=== PATIENT | male | born 1970 | race African-American/Black ===

== ENCOUNTER 2016-09-17 02:29 | Inpatient (IN) ==
[2016-09-17 03:03] LABS: Basophils % 0.5 % (0.0-0.8); Eosinophils # 0.1 10*3/uL (0.0-0.87); Eosinophils % 2.2 % (0.00-10.9); Hematocrit 33.5 VOL% (42.0-52.0); Hemoglobin 11.1 GM/DL (14.0-18.0); Immature Granulocytes % 0.3 %; Immature Granulocytes Absolute 0.02 #; Lymphocytes # 2.1 10*3/uL (1.4-4.0); Lymphocytes % 32.3 % (21.2-54.2); Mean Corpuscular HGB Conc 33.1 GM/DL (32-36); Mean Corpuscular Hemoglobin 30 PG (27-34); Mean Corpuscular Volume 90.8 FL (87-102); Mean Platelet Volume 11.1 FL (9.6-12.0); Monocytes # 0.5 10*3/uL (0.11-0.8); Neutrophils # 3.7 10*3/uL (1.4-7.4); Neutrophils % 57.7 % (38.7-73.9); Platelet Count 185 T/CUMM (130-400); Red Blood Count 3.69 MC/CUMM (3.8-5.5); Red Cell Distribution Width 13.2 % (9.3-17.3); White Blood Count 6.4 T/CUMM (4-12)
--- NOTE | 2016-09-17 03:17 | Emergency Department Note ---
Massimo Fernandez Brittany, am scribing for, and in the presence of, Yovani Lynch MD 02:56. Seyd Fernandez Robert M, MD, personally performed the services described in this documentation, ascribed by Padmini Keys in my presence, and it is both accurate and complete . Arrival - Arrival Chief Complaint: Shortness of Breath Stated Complaint: sob,dialysis pt ED Nursing Triage Note: pt to triage c/o sob. pt states he was doing his dialysis at home this am and became sob. pt was unable to finish dialysis Mode of Arrival: Wheelchair Limitations: No Limitations Source: Patient, Significant other, RN Notes Reviewed Time Seen by Provider: 09/17/16 02:41 - History of Present Illness HPI Narrative: Patient is a 46 y/o black male presenting to the ED with c/o shortness of breath with an onset of a week, worsening tonight. His in room provides most of his history. She reports that patient takes at home dialysis through his Peritoneal Catheter. She states that Dialysis has been difficult to not having any fluid drained in the past two days. She notes that she took patient to a clinic this morning in which they instilled 500 mL of fluid and were able to drain this exact amount back off, but did not further pull anymore fluid off. She was told that his Peritoneal Catheter was intact. Patient tonight has become anxious and has become more short of breath. Upon ED arrival patient appeared to be hyperventilating. He states,"my stomach is too full." reports that he does have a history of HIV and notes that his recent counts have been undetected. Patient has had some chills and cough but no fever. In room patient has an oxygen saturation of 96%. He is a patient of Dr. Mortensen, Nephrology. Patient has a past medical history of CVA, Seizures, IDDM, Dialysis , HIV, Cholecystectomy, Insertion of Peritoneal Dialysis Catheter. Onset (ago): week(s) (1) Consistency: constant Allergies/Adverse Reactions: Allergies Allergy/AdvReac Type Severity Reaction Status Date / Time No Known Allergies Allergy Verified 09/17/16 02:36 Home Medications: Home Medications Medication Instructions Recorded Confirmed Type Epivir 150 mg PO DAILY 07/19/15 07/18/16 History Lamivudine 1 tablet PO DAILY 07/19/15 07/18/16 History Sustiva 1 tablet PO DAILY 07/19/15 07/18/16 History Aspirin EC Tab 325 mg PO DAILY tablet 07/17/16 07/18/16 Rx Atorvastatin [Lipitor] 40 mg PO BEDTIME tablet 07/17/16 07/18/16 Rx Chlorhexidine 0.12% Oral Rinse 15 ml SWISH/SPIT BID bottle 07/17/16 07/18/16 Rx [Peridex] Docusate Sodium Cap [Colace Cap] 100 mg PO BID capsule 07/17/16 07/18/16 Rx Levothyroxine Tab [Synthroid Tab] 100 mcg PO DAILY@0700 #30 tablet 07/17/16 Rx Pantoprazole Tab [Protonix Tab] 40 mg PO DAILY tablet 07/17/16 07/18/16 Rx Polyethylene Glycol Powder 17 gm PO DAILY PRN #0 07/17/16 07/18/16 Rx [Miralax] Sertraline [Zoloft] 25 mg PO DAILY #30 tablet 07/17/16 07/18/16 Rx Calcitriol 0.75 mcg PO DAILY 07/18/16 07/18/16 History Sucroferric Oxyhydroxide [Velphoro 500 mg PO TID 07/18/16 07/18/16 History Chew Tab] Abacavir [Ziagen] 600 mg PO BEDTIME #30 tablet 07/23/16 Rx Losartan/Hctz 50-12.5 [Hyzaar 2 tablet PO DAILY #60 tablet 07/23/16 Rx 50-12.5] Review of System - Review of System 12 point system: reviewed and no additional remarkable complaints except as stated - Review of System Constitutional: Present: chills. Absent: fever Eyes: Absent: vision change Head/Ears/Nose/Throat: Absent: nasal drainage Respiratory: Present: cough, respiratory distress Cardiovascular: Absent: chest pain, palpitations Gastrointestinal: Absent: abdominal pain, nausea, vomiting, diarrhea, constipation Genitourinary male: Absent: urgency, dysuria, frequency Musculoskeletal: Absent: arm pain, back pain, leg pain, neck pain Skin: Absent: rash Neurological: Absent: headache Medical,Surgical,& Family Hx - Medical History Cardio: History of: CAD, Hypertension, CT (July 16, 2016) Neurology: History of: Cerebrovascular Accident (2015- WEAKNESS R SIDE) No history of: Seizures Endocrine: History of: Diabetes Mellitus (IDDM) (Since 1996) Respiratory: History of: Respiratory Problems (Patient gets SOB occasionally, get O2 PRN.) Renal: History of: Dialysis (peritoneal dialysis since 1999), Renal Problems Musculoskeletal: No history of: Amputation Hematology: History of: Anemia (chronic disease) Reproductive: Reports: Sexually Transmitted Disease (HIV+ since 2012) Other: History of: HIV (Since 2012) - Surgical History Cardiac Surgeries: Sugical HX of: Cardiac Catheterization, Cardiac Surgery ( CABG x 04 July 2016) Thoracic Surgeries: Patient denies;: Kidney (Renal Surgery), Lithotripsy, Nephrectomy, Organ Transplant, Lobectomy HEENT Surgeries: Patient denies: Eye Surgery, Thyroid Surgery, Tonsilectomy & Adenoidectomy Abdominal Surgeries: Surgical HX of: Cholecystectomy (2006) Reproductive Surgeries: Surgical HX of;: Genitourinary Surgery (INSERTION PERITONEAL DIALYSIS) Patient denies;: Cystoscopy, Prostate Surgery, Vasectomy Orthopedic Surgeries: Patient denies;: Implanted Devices, Orthopedic Surgery, Spinal Surgery, Total Hip Replacement, Total Knee Replacement - Family History Family History: Reports;: Family Diabetes (PARENTS & 6 SIBLINGS), Family Heart Disease (FATHER), Family Hypertension (MOTHER & FATHER), Family Stroke (FATHER) Denies;: Family Anesthesia Reaction, Family Psychiatric Problems - Social History Smoking Status: Current every day smoker Frequency of Alcohol Use: None Type of Drug Use: None Exam Vital Signs: Vital Signs Temperature 98.6 F 09/17/16 03:04 Pulse Rate 97 H 09/17/16 03:04 Respiratory Rate 26 H 09/17/16 03:04 Blood Pressure 160/86 09/17/16 03:04 O2 Sat by Pulse Oximetry 95 09/17/16 02:33 - General General appearance: alert, anxious - Head Head exam: Present: atraumatic, normocephalic, normal inspection - Eye Eye exam: Present: normal appearance, PERRL, EOMI - ENT ENT exam: Present: normal exam, normal oropharynx - Neck Neck exam: Present: normal inspection, full ROM, trachea midline - Chest Chest inspection: Present: normal inspection, symmetric chest wall rise - Respiratory Respiratory exam: Present: normal lung sounds bilaterally, other (96% oxygen saturation on 2L via NC). Absent: rales, rhonchi, wheezes - Cardiovascular Cardiovascular exam: Present: regular rate, normal rhythm, normal heart sounds. Absent: murmur, rubs, gallop - Abdominal Exam Abdominal exam: Present: soft, normal bowel sounds. Absent: distention, tenderness - Extremities Exam Extremities exam: Present: normal inspection - Back Exam Back exam: Present: normal inspection - Neurological Exam Neurological exam: Present: alert, oriented X3, CN II-XII intact. Absent: motor sensory deficit - Psychiatric Psychiatric exam: Present: normal affect, normal mood - Skin Skin exam: Present: warm, dry, intact, normal color Course - Consultations Consultation #1: Dr. Dr. Terrance Thompson will evaluate the patient and admit. Time: 04:18 Results - Labs CBC & BMP: 09/17/16 02:55 09/17/16 02:55 Lab Results: I have reviewed the patients labs Labs: Lab Results WBC 6.4 T/CUMM (4-12) 09/17/16 02:55 RBC 3.69 MC/CUMM (3.8-5.5) L 09/17/16 02:55 Hgb 11.1 GM/DL (14.0-18.0) L 09/17/16 02:55 Hct 33.5 VOL% (42.0-52.0) L 09/17/16 02:55 MCV 90.8 FL (87-102) 09/17/16 02:55 MCH 30 PG (27-34) 09/17/16 02:55 MCHC 33.1 GM/DL (32-36) 09/17/16 02:55 RDW 13.2 % (9.3-17.3) 09/17/16 02:55 Plt Count 185 T/CUMM (130-400) 09/17/16 02:55 MPV 11.1 FL (9.6-12.0) 09/17/16 02:55 Neut % (Auto) 57.7 % (38.7-73.9) 09/17/16 02:55 Lymph % (Auto) 32.3 % (21.2-54.2) 09/17/16 02:55 Oliver % (Auto) 7.0 % (1.7-12.7) 09/17/16 02:55 Eos % (Auto) 2.2 % (0.00-10.9) 09/17/16 02:55 Baso % (Auto) 0.5 % (0.0-0.8) 09/17/16 02:55 Neut # (Auto) 3.7 10*3/uL (1.4-7.4) 09/17/16 02:55 Lymph # (Auto) 2.1 10*3/uL (1.4-4.0) 09/17/16 02:55 Oliver # (Auto) 0.5 10*3/uL (0.11-0.8) 09/17/16 02:55 Eos # (Auto) 0.1 10*3/uL (0.0-0.87) 09/17/16 02:55 Baso # (Auto) 0.0 10*3/uL (0.0-0.2) 09/17/16 02:55 Immature Gran % 0.3 % 09/17/16 02:55 Nucleated RBC % 0.0 /100WBC 09/17/16 02:55 Immature Gran # 0.02 # 09/17/16 02:55 Nucleated RBCs # 0.00 10*3/uL 09/17/16 02:55 Sodium 142 MMOL/L (136-145) 09/17/16 02:55 Potassium 3.7 MMOL/L (3.5-5.1) 09/17/16 02:55 Chloride 104 MMOL/L (98-107) 09/17/16 02:55 Carbon Dioxide 26 MMOL/L (21-32) 09/17/16 02:55 Anion Gap 15.7 MMOL/L (5.0-15.0) H 09/17/16 02:55 BUN 41 MG/DL (7-18) H 09/17/16 02:55 Creatinine 10.40 MG/DL (0.70-1.30) H 09/17/16 02:55 GFR Calculation 7 ML/MIN 09/17/16 02:55 BUN/Creatinine Ratio 3.00 RATIO (6.00-20.00) L 09/17/16 02:55 Glucose 113 MG/DL (74-106) H 09/17/16 02:55 Calculated Osmolality 293.1 MOS/KG (273-304) 09/17/16 02:55 Calcium 8.6 MG/DL (8.5-10.1) 09/17/16 02:55 Magnesium 2.0 MG/DL (1.8-2.4) 09/17/16 02:55 Total Creatine Kinase 332 U/L (39-308) H 09/17/16 02:55 CK-MB (CK-2) 4.1 U/L (0.5-3.6) H 09/17/16 02:55 Troponin I 0.175 NG/ML (0.00-0.045) H 09/17/16 02:55 - EKG EKG results: interpreted by ERMD (Stable appearance of EKG. Normal sinus rhythm. No changes from most recent.) - Diagnostic Findings Procedure: Chest x-ray: image reviewed by me (Pulmonary edema with left pleural effusion/atelectatic changes and small amount of fluid in the minor fissure)
[2016-09-17 03:20] LABS: Calcium 8.6 MG/DL (8.5-10.1); Osmolality,Calculated 293.1 MOS/KG (273-304); Potassium 3.7 MMOL/L (3.5-5.1)
[2016-09-17 03:50] LABS: Troponin I Only 0.175 NG/ML (0.00-0.045)
[2016-09-17] MEDS ORDERED: ZALEPLON 5 MG CAPSULE PO PRN (04:34)
[2016-09-17] MEDS ORDERED: ONDANSETRON 4 MG/2 ML VIAL IV PRN (04:34)
--- NOTE | 2016-09-17 04:41 | Hospitalist History & Physical ---
Assessment and Plan - Time spent with patient Time spent with patient: Greater than 30 minutes (1) Acute pulmonary edema Status: Acute Current Visit: Yes (2) Chronic systolic (congestive) heart failure Status: Chronic Assessment and plan: Ejection fraction 30-35%. Current Visit: Yes (3) End-stage renal disease on peritoneal dialysis Status: Chronic Assessment and plan: Peritoneal dialysis catheter nonfunctional at this time. Will consult nephrology and consider surgical consult for tunneled catheter placement and hemodialysis. Current Visit: No (4) Diabetes Status: Chronic Current Visit: No Qualifiers: (5) HIV (human immunodeficiency virus infection) Problem details: treated in [place], [place] Status: Chronic Current Visit: No (6) Dyslipidemia Status: Chronic Current Visit: No (7) Hypertension Status: Chronic Current Visit: No Qualifiers: Hypertension type: essential hypertension Qualified Code(s): I10 - Essential (primary) hypertension (8) Status post coronary artery bypass graft Status: Acute Assessment and plan: Status post CABG in July 2016 Current Visit: No History of Present Illness Chief complaint: Shortness of breath History of present illness: Mr. Flores is a 46 year old male accompanied by his to the ED with c/o shortness of breath with an onset of a week, worsening tonight. His provides most of his history. She reports that patient takes at home dialysis through his Peritoneal Catheter. She states that Dialysis has been difficult and he has not had any fluid drained in the past two days. He is supposed to do 4 exchanges each day. Each exchanges 2500 mL's. He was unable to exchange fluid on Friday night. On Friday she taken to the dialysis clinic where they were able to exchange 500 mL's but were unable to take off any more fluid. She was told that his Peritoneal Catheter was intact. Patient tonight has become anxious and has become more short of breath. This evening, they tried to do another exchange at home and were unsuccessful in recovering the 2500 mL's that were instilled into his peritoneal cavity. Upon ED arrival patient appeared to be hyperventilating. He states,"my stomach is too full." reports that he does have a history of HIV and notes that his recent counts have been undetectable. He complains of abdominal pain and has had some chills and cough but no fever. Mr. Flores underwent CABG in July 2016 for three-vessel disease. At that time his echocardiogram showed an ejection fraction of 30-35%. I have been asked to admit the patient for pulmonary edema in the face of a nonfunctioning peritoneal dialysis catheter for consultation with nephrology and definitive treatment. Patient to considering hemodialysis and tunneled catheter placement. He was found to have a marginal elevation in troponin without any indication of acute myocardial infarction at this time. During the last hospitalization he was seen by Dr. Fulton. He is a patient of Dr. Mortensen, Nephrology. Patient has a past medical history of CVA, Seizures, IDDM, Dialysis , HIV, Cholecystectomy, Insertion of Peritoneal Dialysis Catheter approximately [address] John SAEED. Home Medications Medication Instructions Recorded Confirmed Type Epivir 150 mg PO DAILY 07/19/15 07/18/16 History Lamivudine 1 tablet PO DAILY 07/19/15 07/18/16 History Sustiva 1 tablet PO DAILY 07/19/15 07/18/16 History Aspirin EC Tab 325 mg PO DAILY tablet 07/17/16 07/18/16 Rx Atorvastatin [Lipitor] 40 mg PO BEDTIME tablet 07/17/16 07/18/16 Rx Chlorhexidine 0.12% Oral Rinse 15 ml SWISH/SPIT BID bottle 07/17/16 07/18/16 Rx [Peridex] Docusate Sodium Cap [Colace Cap] 100 mg PO BID capsule 07/17/16 07/18/16 Rx Levothyroxine Tab [Synthroid Tab] 100 mcg PO DAILY@0700 #30 tablet 07/17/16 Rx Pantoprazole Tab [Protonix Tab] 40 mg PO DAILY tablet 07/17/16 07/18/16 Rx Polyethylene Glycol Powder 17 gm PO DAILY PRN #0 07/17/16 07/18/16 Rx [Miralax] Sertraline [Zoloft] 25 mg PO DAILY #30 tablet 07/17/16 07/18/16 Rx Calcitriol 0.75 mcg PO DAILY 07/18/16 07/18/16 History Sucroferric Oxyhydroxide [Velphoro 500 mg PO TID 07/18/16 07/18/16 History Chew Tab] Abacavir [Ziagen] 600 mg PO BEDTIME #30 tablet 07/23/16 Rx Losartan/Hctz 50-12.5 [Hyzaar 2 tablet PO DAILY #60 tablet 07/23/16 Rx 50-12.5] Allergies Allergy/AdvReac Type Severity Reaction Status Date / Time No Known Allergies Allergy Verified 09/17/16 02:36 Medical,Surgical,& Family Hx - Medical History Cardio: History of: CAD, Hypertension, [place] (July 16, 2016) Neurology: History of: Cerebrovascular Accident (2015- WEAKNESS R SIDE) No history of: Seizures Endocrine: History of: Diabetes Mellitus (IDDM) (Since 1996) Respiratory: History of: Respiratory Problems (Patient gets SOB occasionally, get O2 PRN.) Renal: History of: Dialysis (peritoneal dialysis since 1999), Renal Problems Musculoskeletal: No history of: Amputation Hematology: History of: Anemia (chronic disease) Reproductive: Reports: Sexually Transmitted Disease (HIV+ since 2012) Other: History of: HIV (Since 2012) - Surgical History Cardiac Surgeries: Sugical HX of: Cardiac Catheterization, Cardiac Surgery ( CABG x 04 July 2016) Thoracic Surgeries: Patient denies;: Kidney (Renal Surgery), Lithotripsy, Nephrectomy, Organ Transplant, Lobectomy HEENT Surgeries: Patient denies: Eye Surgery, Thyroid Surgery, Tonsilectomy & Adenoidectomy Abdominal Surgeries: Surgical HX of: Cholecystectomy (2006) Reproductive Surgeries: Surgical HX of;: Genitourinary Surgery (INSERTION PERITONEAL DIALYSIS) Patient denies;: Cystoscopy, Prostate Surgery, Vasectomy Orthopedic Surgeries: Patient denies;: Implanted Devices, Orthopedic Surgery, Spinal Surgery, Total Hip Replacement, Total Knee Replacement - Family History Family History: Reports;: Family Diabetes (PARENTS & 6 SIBLINGS), Family Heart Disease (FATHER), Family Hypertension (MOTHER & FATHER), Family Stroke (FATHER) Denies;: Family Anesthesia Reaction, Family Psychiatric Problems - Social History Smoking Status: Current every day smoker Frequency of Alcohol Use: None Type of Drug Use: None Marital Status: Lives With:: Spouse Functional capacity: independent ambulation 12 point system: reviewed and no additional remarkable complaints except as stated - Cardiovascular Cardiovascular: Present: as per HPI, dyspnea - Gastrointestinal Gastrointestinal: Present: abdominal pain. Absent: diarrhea, hematemesis, hematochezia, vomiting Exam - Constitutional Vitals: Period Temp Pulse Resp BP Sys/Holliday Pulse Ox Last 24 Hr 98.6 F-98.6 F 97-97 16-26 160-160/86-86 95 Exam: Constitutional System: Mild distress. No tremulousness. Anxious. Complains of pain. Head: Normocephalic, atraumatic. Ears, Nose and Throat System: No pain or tenderness. No epistaxis or discharge Eyes System: Pupils equal, round, and reactive. Extraocular muscles intact. Neck: Supple, without adenopathy, No jugular venous distention. No thyromegaly, neck mass, or prior surgery apparent. Respiratory System: Chest with bilateral rales to auscultation. Cardiovascular System: Heart with regular rate and rhythm. No murmur. GI System: Abdomen soft, tender to palpation. Normo active bowel sounds present. Musculoskeletal System: limbs with pitting right lower extremity edema. Full distal pulses. Neurological System: No discernable sensory deficit. No aphasia Psychiatric System: Conversation is rational Results - Labs CBC & BMP: 09/17/16 02:55 09/17/16 02:55 Lab Results: I have reviewed the past 24 hour labs - Diagnostic Findings Procedure: Chest x-ray: image reviewed by me, report reviewed by me
--- NOTE | 2016-09-17 06:47 | XRay Report ---
Exam: XR chest 1V portable Date: 09/17/2016 2:51 AM Indication: Chest pain shortness of breath Comparison: 07/15/2016 Findings: Cardiomegaly is present with previous sternotomy. Low volume effusions are present with underlying mild atelectatic change present in the bases. Surgical clips present right axillary region. External cardiac leads are present. The bony structures are intact. Impression: 1. Cardiomegaly with previous sternotomy 2. Improving aeration with decreasing atelectatic change infiltrates and effusions in the basilar regions bilaterally with resolution of subcutaneous air over the left lateral chest 3. Previous cholecystectomy PROCEDURE INTERPRETED AT [facility] DEPARTMENT OF RADIOLOGY Final Report Signed by: Dr. Pillo Nolan
--- NOTE | 2016-09-17 08:49 | EKG Report ---
Stationary ECG Study [facility] ER Test Date: 09/17/2016 2:42:46 AM Pat Name: ANDREW STANLEY Department: Room: 291 Gender: M [employer] Crew Member: ARNAUD : 1970 Requested by: Yovani Lynch Order Number: [id number] Reading MD: YUE COLÓN Intervals [place] Rate: 103 P: 56 VT: 159 QRS: 21 QRSD: 86 T: 161 QT: 341 QTc: 400 Interpretive Statements SINUS TACHYCARDIA Electronically Signed On 09-17-16 18:21:09 CDT by YUE COLÓN [email or web address]
[2016-09-17] MEDS ORDERED: MORPHINE 2 MG/1 ML SYRINGE IV PRN (10:18)
[2016-09-17] MEDS ORDERED: ceFAZolin 2,000 MG in PREMIX 1 EACH IV ONE (11:56)
--- NOTE | 2016-09-17 12:00 | Event Note ---
I discussed his case with patient and with Dr. Mortensen. The patient desires to switch to hemodialysis. We discussed the procedure and risks including infection, bleeding, blood clots, injury to great vessels, pneumothorax, etc. he understands this and wishes to proceed. Dr. Mortensen wants me to leave his peritoneal catheter in place for a while in case he does not tolerate hemodialysis.
[2016-09-17] MEDS ORDERED: HEPARIN 5,000 UNIT/1 ML VIAL ONE (12:07)
[2016-09-17] MEDS ORDERED: BUPIVACAINE MPF 0.25% /EPI 30 ML VIAL ONE (12:07)
[2016-09-17] MEDS ORDERED: LIDOCAINE 1%/EPI INJ 20 ML VIAL ONE (12:07)
[2016-09-17] MEDS: PANTOPRAZOLE 40 MG TABLET PO SCH (12:50)
[2016-09-17] MEDS: SODIUM CHLORIDE 0.9% 250 ML IV SCH (12:55)
--- NOTE | 2016-09-17 13:28 | Operative Note ---
Date of procedure: 09/17/16 Pre-op diagnosis: chronic renal failure Post-op diagnosis: same Procedure: Tunneled hemodialysis catheter right internal jugular vein under ultrasound and fluoroscopic guidance Findings and technique: After informed consent was obtained patient was brought the operating room and placed in supine position. After IV sedation was administered the patient's right neck and chest was prepped and draped in usual sterile fashion. Local anesthesia was infiltrated and an ultrasound probe placed sterilely on the neck where the internal jugular vein was accessed with a single stick under ultrasound guidance. Guidewire was advanced without resistance and fluoroscopy used to check good positioning. Incision was made at the guidewire puncture site and a separate stab incision made beneath the right clavicle. The catheter was tunneled between the 2 incisions. An introducer sheath was passed over the guidewire without resistance and the guidewire removed. Catheter was introduced in position with the tip in the distal superior vena cava under fluoroscopy. The catheters were easily accessed aspirated and flushed. The incision the neck was closed interrupted 3- 0 nylon suture and the catheter sutured to the skin. Anesthesia: MAC, local Surgeon / Physician: Augustine Lopez III. Estimated blood loss: none Specimens: none sent Condition: stable Disposition: PACU Results - Labs CBC & BMP: 09/17/16 02:55 09/17/16 02:55 Discharge Plan - Discharge Medications No Action Atorvastatin [Lipitor] 40 mg PO BEDTIME tablet Losartan Potassium 100 mg PO DAILY Insulin Aspart Prot/Asp 70/30 [NovoLOG Mix 70/30] 30 units SUBCUT DAILY Efavirenz [Sustiva] 600 mg PO DAILY Calcium Acetate 667 mg PO DAILY Aspirin EC Tab 325 mg PO DAILY tablet Docusate Sodium Cap [Colace Cap] 100 mg PO BID capsule Pantoprazole Tab [Protonix Tab] 40 mg PO DAILY tablet Sertraline [Zoloft] 25 mg PO DAILY #30 tablet Levothyroxine Tab [Synthroid Tab] 100 mcg PO DAILY@0700 #30 tablet lamiVUDine [Lamivudine] 150 mg PO DAILY NIFEdipine [Nifedipine ER] 90 mg PO DAILY Abacavir [Ziagen] 600 mg PO BEDTIME #30 tablet - Follow Up or Referral - Forms/Instructions
[2016-09-17] MEDS ORDERED: MIDAZOLAM 2 MG/2 ML VIAL ONE (13:55)
[2016-09-17] MEDS ORDERED: fentaNYL 100 MCG/2 ML VIAL ONE (13:55)
--- NOTE | 2016-09-17 14:09 | XRay Report ---
Exam: XR chest 1V portable Date: 09/17/2016 1:28 PM Indication: Dialysis catheter placement Comparison: 09/17/2016 Technical: AP portable Findings: A right-sided IJ catheter is present distances appear vena cava. External cardiac leads are present. Sternotomy wires are present. Mild interstitial edema shunt vascularity with tiny effusions. No pneumothorax. Impression: 1. Interval placement of right IJ catheter 2. Underlying interstitial pulmonary edema 3. Previous sternotomy. PROCEDURE INTERPRETED AT [facility] DEPARTMENT OF RADIOLOGY Final Report Signed by: Dr. Pillo Nolan
[2016-09-17] MEDS ORDERED: ABACAVIR 300 MG TABLET PO SCH (21:00)
[2016-09-17] MEDS ORDERED: ATORVASTATIN 40 MG TABLET PO SCH (21:00)
--- NOTE | 2016-09-17 21:22 | Nephrology Consult Note ---
History of Present Illness Chief complaint: ESRD, S OB History of present illness: Mr. Flores is a 46 year old male who presented with shortness of breath. He has ESRD and is on peritoneal dialysis. He states his PD has been ineffective, draining less than input. This catheter was checked yesterday at the PD unit and functioned normally. He denies cloudy PD fluid. He denies chest pain. Home Medications Medication Instructions Recorded Confirmed Type Aspirin EC Tab 325 mg PO DAILY tablet 07/17/16 09/17/16 Rx Atorvastatin [Lipitor] 40 mg PO BEDTIME tablet 07/17/16 09/17/16 Rx Docusate Sodium Cap [Colace Cap] 100 mg PO BID capsule 07/17/16 09/17/16 Rx Levothyroxine Tab [Synthroid Tab] 100 mcg PO DAILY@0700 #30 tablet 07/17/16 Rx Pantoprazole Tab [Protonix Tab] 40 mg PO DAILY tablet 07/17/16 09/17/16 Rx Sertraline [Zoloft] 25 mg PO DAILY #30 tablet 07/17/16 09/17/16 Rx Abacavir [Ziagen] 600 mg PO BEDTIME #30 tablet 07/23/16 09/17/16 Rx Calcium Acetate 667 mg PO DAILY 09/17/16 09/17/16 History Efavirenz [Sustiva] 600 mg PO DAILY 09/17/16 09/17/16 History Insulin Aspart Prot/Asp 70/30 30 units SUBCUT DAILY 09/17/16 09/17/16 History [NovoLOG Mix 70/30] Losartan Potassium 100 mg PO DAILY 09/17/16 09/17/16 History NIFEdipine [Nifedipine ER] 90 mg PO DAILY 09/17/16 09/17/16 History lamiVUDine [Lamivudine] 150 mg PO DAILY 09/17/16 09/17/16 History Allergies Allergy/AdvReac Type Severity Reaction Status Date / Time No Known Allergies Allergy Verified 09/17/16 02:36 Medical,Surgical,& Family Hx - Medical History Cardio: History of: CAD, Hypertension, [place] (July 16, 2016) Neurology: History of: Cerebrovascular Accident (2014- WEAKNESS R SIDE) No history of: Seizures Endocrine: History of: Diabetes Mellitus (IDDM) (Since 1996) Respiratory: History of: Respiratory Problems (Patient gets SOB occasionally, get O2 PRN.) Renal: History of: Dialysis (peritoneal dialysis since 1999), Renal Problems Musculoskeletal: No history of: Amputation Hematology: History of: Anemia (chronic disease) Reproductive: Reports: Sexually Transmitted Disease (HIV+ since 2012) Other: History of: HIV (Since 2012) - Surgical History Cardiac Surgeries: Sugical HX of: Cardiac Catheterization, Cardiac Surgery ( CABG x 04 July 2016) Thoracic Surgeries: Patient denies;: Kidney (Renal Surgery), Lithotripsy, Nephrectomy, Organ Transplant, Lobectomy HEENT Surgeries: Patient denies: Eye Surgery, Thyroid Surgery, Tonsilectomy & Adenoidectomy Abdominal Surgeries: Surgical HX of: Cholecystectomy (2006) Reproductive Surgeries: Surgical HX of;: Genitourinary Surgery (INSERTION PERITONEAL DIALYSIS) Patient denies;: Cystoscopy, Prostate Surgery, Vasectomy Orthopedic Surgeries: Patient denies;: Implanted Devices, Orthopedic Surgery, Spinal Surgery, Total Hip Replacement, Total Knee Replacement - Family History Family History: Reports;: Family Diabetes (PARENTS & 6 SIBLINGS), Family Heart Disease (FATHER), Family Hypertension (MOTHER & FATHER), Family Stroke (FATHER) Denies;: Family Anesthesia Reaction, Family Psychiatric Problems - Social History Smoking Status: Former smoker Frequency of Alcohol Use: None Type of Drug Use: None Review of Systems 12 point system: reviewed and no additional remarkable complaints except as stated Exam - Vital Signs Vital signs: Period Temp Pulse Resp BP Sys/Holliday Pulse Ox Last 24 Hr 97.7 F-99.8 F 93-114 18-22 147-178/86-108 92-99 Exam: Gen.: Alert and oriented x3. ENT: Pupils equal round reactive to light. EOMs intact. Mucous membranes moist. Neck: Supple. No JVD or bruit. Cardiovascular: Regular rate and rhythm. No murmur rub or gallop Lungs: Clear Abdomen: Soft. Nontender. Positive bowel sounds. PD catheter shows no sign of infection at the exit site Extremities: No edema Results - Labs CBC & BMP: 09/17/16 02:55 09/17/16 02:55 Assessment and Plan (1) End-stage renal disease on peritoneal dialysis Status: Chronic Assessment and plan: 46-year-old man admitted with: * ESRD. He has mild volume overload. He has been variably compliant with his PD in the past. He has expressed desire to change to hemodialysis prior to this admission. He is requesting to switch to hemodialysis. I discussed differences and fluid restriction and diet with him and his . Tunneled dialysis catheter will be placed. * Volume overload * CAD * Diabetes mellitus * HIV * Cerebrovascular disease Current Visit: No (2) 3-vessel CAD Status: Chronic Current Visit: No (3) Cerebrovascular disease Status: Chronic Current Visit: No (4) Diabetes Status: Chronic Current Visit: No Qualifiers: (5) HIV (human immunodeficiency virus infection) Problem details: treated in [place], [place] Status: Chronic Current Visit: No (6) Hypertension Status: Chronic Current Visit: No Qualifiers: Hypertension type: essential hypertension Qualified Code(s): I10 - Essential (primary) hypertension
--- NOTE | 2016-09-17 21:26 | Dialysis Note ---
Dialysis Note - Dialysis Note He is dialyzing using new tunneled catheter. He is tolerating this without complications
[2016-09-17] MEDS: DOCUSATE SODIUM 100 MG CAPSULE PO SCH (22:08)
[2016-09-18] MEDS: SODIUM CHLORIDE 0.9% 250 ML IV SCH (03:11)
[2016-09-18] MEDS ORDERED: LEVOTHYROXINE 100 MCG TABLET PO SCH (07:00)
--- NOTE | 2016-09-18 08:44 | Event Note ---
Catheter looks okay. His chest x-ray is okay. Call if needed.
[2016-09-18] MEDS ORDERED: ASPIRIN EC 325 MG TABLET PO SCH (09:00)
[2016-09-18] MEDS ORDERED: SERTRALINE 25 MG TABLET PO SCH (09:00)
[2016-09-18] MEDS ORDERED: INSULIN ASPART PROTAMINE/ASPART 70/30 100 UNIT/ML SUBCUT SCH (09:00)
[2016-09-18] MEDS ORDERED: SUSTIVA 600 MG PO SCH (09:00)
[2016-09-18] MEDS ORDERED: CALCIUM ACETATE 667 MG CAPSULE PO SCH (09:00)
[2016-09-18] MEDS ORDERED: LAMIVUDINE 150 MG PO SCH (09:00)
[2016-09-18] MEDS ORDERED: LOSARTAN 50 MG TABLET PO SCH (09:00)
[2016-09-18] MEDS: DOCUSATE SODIUM 100 MG CAPSULE PO SCH (09:10)
[2016-09-18] MEDS: PANTOPRAZOLE 40 MG TABLET PO SCH (09:10)
--- NOTE | 2016-09-18 10:01 | Anesthesia Post-Op ---
Anesthesia Post OP - Post Ansesthetic Evaluation Patient seen in post op: Yes Resp: within normal limits CV: within normal limits Mental: within normal limits Temp: within normal limits [id number]: within normal limits Nausea and Vomiting: within normal limits Pain: within normal limits
[2016-09-18] MEDS ORDERED: HEPARIN 10,000 UNIT/10 ML VIAL IV PRN (11:04)
--- NOTE | 2016-09-18 12:05 | Hospitalist Progress Note ---
Assessment and Plan (1) ESRD (end stage renal disease) on dialysis Status: Acute Assessment and plan: 1)ESRD- changed to HD from PD. Home with outpatient HD when ok with Dr Mortensen. 2)minimally elevated troponin- recent RI. repeat troponin today. No complaints of chest pain or shortness of breath. 3)HIV- on meds as at home 4)hyperlipidemia-on lipitor 5)HTN-controlled 6)chronic CHF- EF 30-35% Current Visit: Yes (2) Diabetes Status: Chronic Current Visit: No Qualifiers: (3) HIV (human immunodeficiency virus infection) Problem details: treated in [place], [place] Status: Chronic Current Visit: No (4) Dyslipidemia Status: Chronic Current Visit: No (5) Hypertension Status: Chronic Current Visit: No Qualifiers: Hypertension type: essential hypertension Qualified Code(s): I10 - Essential (primary) hypertension (6) Debility Status: Acute Current Visit: No (7) Status post aorto-coronary artery bypass graft Status: Acute Current Visit: No (8) Chronic systolic (congestive) heart failure Status: Chronic Current Visit: Yes Hospitalist: Subjective Interval history: Mr Flores was seen on dialysis. He was admitted to change from PD to HD. TOday is his second HD. SW arranging outpatient dialysis, but will talk to Dr Mortensen first for timeline on when will be discharged. No complaints. Exam - Constitutional Vitals: Period Temp Pulse Resp BP Sys/Holliday Pulse Ox Last 24 Hr 97.8 F-100 F 89-102 16-22 136-162/58-108 92-100 General appearance: normal weight, no acute distress - Eye Eye exam: Present: EOMI. Absent: scleral icterus - Respiratory Respiratory exam: Present: clear to auscultation bilaterally - Cardiovascular Cardiovascular exam: Present: regular rate and rhythm - GI/Abdominal GI/Abdominal exam: Present: normal bowel sounds, soft. Absent: tenderness - Extremities Exam Extremities exam: Absent: edema Results - Labs CBC & BMP: 09/17/16 02:55 09/17/16 02:55 Lab Results: I have reviewed the past 24 hour labs Quality Measures - VTE Contraindication to Pharmacological VTE Prophylaxis: High Risk of Bleeding
--- NOTE | 2016-09-18 16:02 | Discharge Summary ---
Hospital Course - Hospital Course Hospital Course: Mr Flores came in because he wasn't tolerating PD at home very well and wanted to change to HD. Dr Lopez placed a tunneled HD catheter. Dr Mortensen began hemodialysis. He has tolerated it. He will be discharged to continue this on MWFr schedule at the [place] dialysis unit. He will see Dr Lopez in clinic for vein mapping. He will see Dr Mortensen in clinic. No medicines were changed. - Time spent with patient Time with patient DS: Less than 30 minutes Diagnosis - Discharge Diagnosis (1) ESRD (end stage renal disease) on dialysis Status: Chronic (2) Diabetes Status: Chronic (3) HIV (human immunodeficiency virus infection) Status: Chronic (4) Dyslipidemia Status: Chronic (5) Hypertension Status: Chronic (6) Debility Status: Acute (7) Status post aorto-coronary artery bypass graft Status: Acute (8) Chronic systolic (congestive) heart failure Status: Chronic Specialty Discharge - Follow Up or Referrals Follow up with: dialysis unit, in [place] [Other] (per Mehreen's instructions) Wilfrido Mortensen MD [Physician] - 2 Weeks Augustine Lopez III., MD [Physician] - 2 Weeks (in clinic with vein mapping) Discharge Plan - Discharge Data Disposition: Disch To Home/Self Care Condition at Discharge: Stable Discharge Diet: diabetic diet, heart healthy Activity: resume usual activities as tolerated - Discharge Medications Continue Atorvastatin [Lipitor] 40 mg PO BEDTIME tablet Losartan Potassium 100 mg PO DAILY Insulin Aspart Prot/Asp 70/30 [NovoLOG Mix 70/30] 30 units SUBCUT DAILY Efavirenz [Sustiva] 600 mg PO DAILY Calcium Acetate 667 mg PO DAILY Aspirin EC Tab 325 mg PO DAILY tablet Docusate Sodium Cap [Colace Cap] 100 mg PO BID capsule Pantoprazole Tab [Protonix Tab] 40 mg PO DAILY tablet Sertraline [Zoloft] 25 mg PO DAILY #30 tablet Levothyroxine Tab [Synthroid Tab] 100 mcg PO DAILY@0700 #30 tablet lamiVUDine [Lamivudine] 150 mg PO DAILY NIFEdipine [Nifedipine ER] 90 mg PO DAILY Abacavir [Ziagen] 600 mg PO BEDTIME #30 tablet - Follow Up or Referral - Forms/Instructions Exam - Constitutional Vitals: Period Temp Pulse Resp BP Sys/Holliday Pulse Ox Last 24 Hr 98.9 F-100 F 89-102 16-20 136-162/58-83 98-100 General appearance: normal weight, no acute distress - Eye Eye exam: Present: EOMI. Absent: scleral icterus - Respiratory Respiratory exam: Present: clear to auscultation bilaterally - Cardiovascular Cardiovascular exam: Present: regular rate and rhythm - GI/Abdominal GI/Abdominal exam: Present: normal bowel sounds, soft. Absent: tenderness - Extremities Exam Extremities exam: Absent: edema Discharge Results Labs on day of discharge: Labs from last 24 hours 09/18/16 09/18/16 09/17/16 12:30 07:40 20:50 POC Glucose 96 129 H Troponin I 0.155 H Preliminary micro results at discharge 09/17/16 05:37 Blood Culture - Preliminary Blood No growth at 1 day 09/17/16 05:37 Blood Culture - Preliminary Blood No growth at 1 day DS: Provider Date of admission: 09/17/16 04:35 Primary care physician: . No PCP Attending physician on admission: Jolene Thompson MD Consults: 09/17/16 05:28 Consult to Physician [CONS] Routine Comment: Dialysis catheter dysfunction- needs replacement Consulting Provider: Augustine Lopez III. Consult to Specialist Group: Surgery Person Notified: JOSIAS Date Notified: 09/17/16 Time Notified: 08:55 09/18/16 08:42 Consult to Case Mgmt/Social Srvs [CONS] Routine Reason for Case Mgmt/Social Srvs: Discharge Planning Consult Comment: please set up for HD ready to DC after schedule set up. Discharging clinician: Merry Gloria MD
--- NOTE | 2016-09-18 17:01 | Nephrology Progress Note ---
Nephrology - PN: Subj Interval history: Seen during dialysis. New catheter is working well. Blood pressure stable Exam (PN)-Nephrology - Vital Signs Vital signs: Period Temp Pulse Resp BP Sys/Holliday Pulse Ox Last 24 Hr 98.9 F-100 F 89-102 16-20 136-162/58-83 98-100 Exam: Gen.: Alert and oriented x3. ENT: Pupils equal round reactive to light. EOMs intact. Mucous membranes moist. Neck: Supple. No JVD or bruit. Cardiovascular: Regular rate and rhythm. No murmur rub or gallop Lungs: Clear Abdomen: Soft. Nontender. Positive bowel sounds. No organomegaly Extremities: 1+ edema - Lab 09/17/16 02:55 09/17/16 02:55 Most recent lab results Calcium 8.6 MG/DL (8.5-10.1) 09/17/16 02:55 Magnesium 2.0 MG/DL (1.8-2.4) 09/17/16 02:55 Assessment and Plan (1) End-stage renal disease on peritoneal dialysis Status: Chronic Assessment and plan: 46-year-old man admitted with: * ESRD. He is tolerating hemodialysis without problems. Outpatient schedule set for Friday. Stable for discharge * Volume overload. Resolved * CAD * Diabetes mellitus * HIV * Cerebrovascular disease Current Visit: No (2) 3-vessel CAD Status: Chronic Current Visit: No (3) Cerebrovascular disease Status: Chronic Current Visit: No (4) Diabetes Status: Chronic Current Visit: No Qualifiers: (5) HIV (human immunodeficiency virus infection) Problem details: treated in [place], [place] Status: Chronic Current Visit: No (6) Hypertension Status: Chronic Current Visit: No Qualifiers: Hypertension type: essential hypertension Qualified Code(s): I10 - Essential (primary) hypertension Specialty Discharge - Follow Up or Referrals Follow up with: dialysis unit, in [place] [employer] [Other] (Friday, Friday, Friday at 5:00) Augustine Lopez III., MD [Physician] - 2 Weeks (in clinic with vein mapping) Wilfrido Mortensen MD [Physician] - 2 Weeks (Dr Mortensen will see patient at the dialysis unit)
[2016-09-18 17:21] VITALS: BP 112/65
[2016-09-18] MEDS ORDERED: ABACAVIR 300 MG TABLET PO SCH (21:00)
== END 2016-09-18 19:25 | disposition home or self-care (01) | DRG 291 ==
LOC: N.ED 02:29 → SUATTDRO 04:34 → N.EDINP 04:34 → N.TELEN 05:04
PROVIDERS: ADMIT Family Medicine; ATTEND Internal Medicine

== ENCOUNTER 2017-04-16 09:48 | Inpatient (IN) ==
[2017-04-16 10:23] LABS: Basophils % 0.7 % (0.0-0.8); Eosinophils # 0.1 10*3/uL (0.0-0.87); Eosinophils % 1.8 % (0.00-10.9); Hematocrit 34.8 VOL% (42.0-52.0); Hemoglobin 11.9 GM/DL (14.0-18.0); Immature Granulocytes % 0.4 %; Immature Granulocytes Absolute 0.02 #; Lymphocytes # 1.5 10*3/uL (1.4-4.0); Lymphocytes % 28.2 % (21.2-54.2); Mean Corpuscular HGB Conc 34.2 GM/DL (32-36); Mean Corpuscular Hemoglobin 31 PG (27-34); Mean Corpuscular Volume 90.2 FL (87-102); Mean Platelet Volume 12.5 FL (9.6-12.0); Monocytes # 0.6 10*3/uL (0.11-0.8); Monocytes % 10.7 % (1.7-12.7); Neutrophils # 3.2 10*3/uL (1.4-7.4); Neutrophils % 58.2 % (38.7-73.9); Platelet Count 121 T/CUMM (130-400); Red Blood Count 3.86 MC/CUMM (3.8-5.5); Red Cell Distribution Width 14.5 % (9.3-17.3); White Blood Count 5.4 T/CUMM (4-12)
[2017-04-16 10:42] LABS: Albumin 3.2 G/DL (3.4-5.0); Bilirubin,Total 0.8 MG/DL (0.2-1.0); Calcium 8.7 MG/DL (8.5-10.1); Magnesium 2.5 MG/DL (1.8-2.4); Osmolality,Calculated 284.2 MOS/KG (273-304); Potassium 5.3 MMOL/L (3.5-5.1); Total Protein 8.7 G/DL (6.4-8.3)
[2017-04-16] MEDS ORDERED: ENOXAPARIN 40 MG/0.4 ML SYRINGE SUBCUT STA (10:42)
[2017-04-16 10:43] LABS: Troponin I Only 0.137 NG/ML (0.00-0.045)
[2017-04-16] MEDS ORDERED: ENOXAPARIN 40 MG/0.4 ML SYRINGE ONE (10:51)
[2017-04-16] MEDS ORDERED: ACETAMINOPHEN 325 MG TABLET PO PRN (13:33)
[2017-04-16] MEDS ORDERED: ONDANSETRON 4 MG/2 ML VIAL IV PRN (13:33)
[2017-04-16] MEDS ORDERED: DEXTROSE 50% 25 GM/50 ML VIAL IV PRN (13:40)
[2017-04-16] MEDS ORDERED: GLUCAGON 1 MG VIAL IM PRN (13:40)
[2017-04-16] MEDS: ENOXAPARIN 30 MG/0.3 ML SYRINGE SUBCUT SCH (14:43)
[2017-04-16] MEDS: INSULIN LISPRO 100 UNIT/ML SUBCUT SCH ×3 (14:44→21:32)
[2017-04-16] MEDS: LOSARTAN 50 MG TABLET PO SCH (14:45)
[2017-04-16] MEDS ORDERED: INSULIN LISPRO 100 UNIT/ML SUBCUT SCH (16:30)
[2017-04-16] MEDS ORDERED: ATORVASTATIN 40 MG TABLET PO SCH (21:00)
[2017-04-17] MEDS: LEVOTHYROXINE 100 MCG TABLET PO SCH (07:26)
[2017-04-17 07:28] LABS: Basophils # 0.1 10*3/uL (0.0-0.2); Basophils % 1.3 % (0.0-0.8); Eosinophils # 0.1 10*3/uL (0.0-0.87); Eosinophils % 2.1 % (0.00-10.9); Hemoglobin 10.7 GM/DL (14.0-18.0); Immature Granulocytes % 0.4 %; Immature Granulocytes Absolute 0.02 #; Lymphocytes # 1.8 10*3/uL (1.4-4.0); Lymphocytes % 34.3 % (21.2-54.2); Mean Corpuscular HGB Conc 34.5 GM/DL (32-36); Mean Corpuscular Hemoglobin 32 PG (27-34); Mean Corpuscular Volume 91.4 FL (87-102); Mean Platelet Volume 12.2 FL (9.6-12.0); Monocytes # 0.7 10*3/uL (0.11-0.8); Monocytes % 12.4 % (1.7-12.7); Neutrophils # 2.6 10*3/uL (1.4-7.4); Neutrophils % 49.5 % (38.7-73.9); Platelet Count 133 T/CUMM (130-400); Red Blood Count 3.39 MC/CUMM (3.8-5.5); Red Cell Distribution Width 14.3 % (9.3-17.3); White Blood Count 5.3 T/CUMM (4-12)
[2017-04-17 08:04] LABS: Albumin 3.4 G/DL (3.4-5.0); Bilirubin,Total 0.6 MG/DL (0.2-1.0); Calcium 8.3 MG/DL (8.5-10.1); Osmolality,Calculated 295.2 MOS/KG (273-304); Potassium 4.2 MMOL/L (3.5-5.1); Risk Ratio 4.79; Total Protein 7.1 G/DL (6.4-8.3); VLDL CHOLESTEROL 59.4 MG/DL
[2017-04-17 08:10] LABS: Free T4 (Free Thyroxine) 1.28 NG/DL (0.76-1.46); Thyroid Stimulating Hormone 1.28 uIU/ml (0.358-3.74)
[2017-04-17] MEDS: INSULIN LISPRO 100 UNIT/ML SUBCUT SCH ×4 (08:51→21:22)
[2017-04-17] MEDS: PANTOPRAZOLE 40 MG TABLET PO SCH (08:52)
[2017-04-17] MEDS: LOSARTAN 50 MG TABLET PO SCH (08:52)
[2017-04-17] MEDS: SERTRALINE 25 MG TABLET PO SCH (08:52)
[2017-04-17] MEDS: hydroCHLOROthiazide 12.5 MG CAPSULE PO SCH (12:48)
[2017-04-17] MEDS: ENOXAPARIN 30 MG/0.3 ML SYRINGE SUBCUT SCH (13:59)
[2017-04-17] MEDS ORDERED: TIVICAY PO SCH (16:30)
[2017-04-17] MEDS ORDERED: LAMIVUDINE PO SCH (16:30)
[2017-04-17] MEDS ORDERED: EDURANT PO SCH (16:30)
[2017-04-17] MEDS ORDERED: INSULIN ASPART PROTAMINE/ASPART 70/30 100 UNIT/ML SUBCUT SCH (21:00)
[2017-04-17] MEDS ORDERED: ATORVASTATIN 20 MG TABLET PO SCH (21:00)
[2017-04-18 00:21] LABS: Apearance,Urine CLEAR (Clear); Bacteria,Urine Occasional /HPF (Few); Bilirubin,Urine Negative (Negative); Blood, Urine Small mg/dL (Negative); Glucose,Urine (UA) >=500 mg/dL (Negative); Hyaline Casts,Urine 8 /LPF (0-3); Ketones,Urine Negative (Negative); Mucus,Urine Occasional /LPF (Occasional); Nitrite,Urine Negative (Negative); Protein,Urine >=500 MG/DL; RBC,Urine 5 /HPF (0-4); Squamous Epithelial Cell,Urine Occasional /HPF (0-10); Urine Color Yellow (Yellow); Urine Specific Gravity 1.014 (1.001-1.035); Urine Urobilinogen < 2.0 EU/DL (0.2-1.0); WBC,Urine 1 /HPF (0-6)
[2017-04-18] MEDS: LEVOTHYROXINE 100 MCG TABLET PO SCH (05:45)
[2017-04-18] MEDS ORDERED: ASPIRIN EC 81 MG TABLET PO SCH (09:00)
[2017-04-18] MEDS: SERTRALINE 25 MG TABLET PO SCH (09:04)
[2017-04-18] MEDS: hydroCHLOROthiazide 12.5 MG CAPSULE PO SCH (09:04)
[2017-04-18] MEDS: LOSARTAN 50 MG TABLET PO SCH (09:04)
[2017-04-18] MEDS: INSULIN LISPRO 100 UNIT/ML SUBCUT SCH ×3 (09:04→16:49)
[2017-04-18] MEDS: PANTOPRAZOLE 40 MG TABLET PO SCH (09:04)
[2017-04-18] MEDS: ENOXAPARIN 30 MG/0.3 ML SYRINGE SUBCUT SCH (16:16)
[2017-04-18 18:04] VITALS: BP 153/87
== END 2017-04-18 18:49 | disposition home or self-care (01) | DRG 204 ==
LOC: EDUNIT# → N.ED 09:48 → SUATTDRO 11:12 → N.EDINP 11:12 → N.5E 13:00
PROVIDERS: ADMIT Internal Medicine; ATTEND Hospitalist